=== PATIENT | female | born 1980 | race Caucasian/White ===

== ENCOUNTER 2018-03-17 10:24 | Emergency (ER) | payer OTHER ==
[~2018-03-17] VITALS: Ht 165.1 cm; Wt 90.7 kg
[~2018-03-17 10:24] MED LIST: AMITRIPTYLINE H25 M2 PO; BACTRIM DS TAB1 EACH PO; CYCLOBENZAPRINE5 MG PO; DOXYCYCLINE 10100 MG PO; FLEXERIL PO; GABAPENTIN 100100 MG PO; IBUPROFEN 800800 M1 PO; KEFLEX500 MG PO; NORCO 5-325 TA1 EAC1 PO; NORCO 5-325 TA1 EACH PO; TORADOL 10 MG T10 MG PO; TRIAMCINOLONE A80 G2 TOP; ULTRAM 50MG TAB50 MG PO; VITAMIN B-12500 MCG PO; VITAMIN D3400 UNIT PO; VITAMINC500 PO; ZOFRAN ODT4 MG PO
[2018-03-17] MEDS ORDERED: NEURONTIN600 MG (12:09)
[2018-03-17] MEDS ORDERED: IBUPROFEN 800800 M1 PO (12:53)
[2018-03-17] MEDS ORDERED: ROBAXIN500 MG PO (12:53)
[2018-03-17 13:54] VITALS: BP 138/48
--- NOTE | 2018-03-17 17:49 | EKG ---
[place] [address] ELECTROCARDIOGRAM REPORT Name: GERMANIA WOMACK Room: [facility]#: [id number] Admission: 03/17/18 Attend Phys: Discharge: 03/17/18 Date of : 80 Report #: [id number] THIS REPORT FOR: //name// [facility] ED Test Date: 2018-03-17 Test Time: 10:45:12 Pat Name: GERMANIA WOMACK Department: Room: Gender: F Web Systems Developer: TAMMIE SANTOS : 1980 Requested By: Uriel Ragsdale Order Number: [id number] MD: Anthony Oates Measurements Intervals [employer] Rate: 84 P: 54 CA: 176 QRS: 70 QRSD: 83 T: 28 QT: 344 QTc: 407 Interpretive Statements Sinus rhythm Low voltage, precordial leads Compared to ECG 08/09/2016 18:10:18 Low QRS voltage now present Electronically Signed On 03-17-2018 17:49:33 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 03/17/18 1749 1045 1045 Anthony Oates MD, FAC /EPI
== END 2018-03-17 13:15 | disposition home or self-care (01) ==
LOC: M.ERS 10:24
DX: S16.1XXA Strain of muscle, fascia and tendon at neck level, initial encounter (principal); S20.212A Contusion of left front wall of thorax, initial encounter; S20.211A Contusion of right front wall of thorax, initial encounter; V89.2XXA Person injured in unspecified motor-vehicle accident, traffic, initial encounter; Y93.89 Activity, other specified; Y92.89 Other specified places as the place of occurrence of the external cause; Y99.8 Other external cause status; I10 Essential (primary) hypertension

== ENCOUNTER 2018-11-16 09:46 | Emergency (ER) | payer OTHER ==
[~2018-11-16] VITALS: Ht 154.9 cm; Wt 97.5 kg
[~2018-11-16 09:46] MED LIST changes: +NEURONTIN600 MG; +ROBAXIN500 MG PO
[2018-11-16 10:27] LABS: URINE BILIRUBIN NEGATIVE (Negative); URINE BLOOD NEGATIVE (Negative); URINE CLARITY CLEAR; URINE COLOR YELLOW; URINE GLUCOSE-RANDOM NEGATIVE (Negative); URINE KETONES NEGATIVE (Negative); URINE LEUKOCYTES-REFLEX NEGATIVE (Negative); URINE NITRITE-REFLEX NEGATIVE (Negative); URINE PROTEIN NEGATIVE (Negative); URINE SPECIFIC GRAVITY >= 1.030 (1.005-1.030); URINE UROBILINOGEN 0.2 E.U./dl (0.2-1.0)
[2018-11-16 10:33] LABS: ABSOLUTE BASOPHILS 0.1 thou/uL (0.0-0.2); ABSOLUTE EOSINOPHILS 0.2 thou/uL (0.0-0.7); ABSOLUTE LYMPHOCYTES 2.5 thou/uL (0.8-5.3); ABSOLUTE MONOCYTES 0.5 thou/uL (0.0-1.2); ABSOLUTE NEUTROPHILS 6.1 thou/uL (1.6-8.1); BASOPHILS 0.6 %; EOSINOPHILS 1.6 %; HEMATOCRIT 42.2 % (37.0-47.0); HEMOGLOBIN 14.4 gm/dL (12.0-15.0); LYMPHOCYTES 26.8 %; MCH 32.1 pg (26.0-34.0); MCHC 34.2 g/dL (28.0-37.0); MCV 93.9 fL (80.0-100.0); MONOCYTES 5.7 %; NUCLEATED RBCS 0 /100WBC; PLATELET COUNT* 321 thou/uL (150-400); POLYS 65.3 %; RBC 4.49 mil/uL (4.20-5.00); RDW-CV 13.5 % (10.5-14.5); WBC 9.4 thou/uL (4.0-11.0)
[2018-11-16 10:54] LABS: ANION GAP 7 mmol/L (7-16); BUN 13 mg/dL (7-18); CALCIUM 8.4 mg/dL (8.5-10.1); CHLORIDE 106 mmol/L (98-107); CO2 27 mmol/L (21-32); CREATININE 0.8 mg/dL (0.6-1.3); GLUCOSE 105 mg/dL (70-99); POTASSIUM 3.5 mmol/L (3.5-5.1); SODIUM 140 mmol/L (136-145)
[2018-11-16 10:58] LABS: ALBUMIN 3.6 g/dL (3.4-5.0); ALKALINE PHOSPHATASE 62 U/L (46-116); LIPASE 89 U/L (73-393); SGOT 9 U/L (15-37); SGPT 18 U/L (30-65); TOTAL BILIRUBIN 0.3 mg/dL (<0.1-1.0); TOTAL PROTEIN 7.7 g/dL (6.4-8.2); TROPONIN-I LEVEL <0.06 ng/mL (<0.06)
[2018-11-16] MEDS ORDERED: BENTYL 20 MG TA20 M1 PO ×2 (11:47→11:59)
[2018-11-16] MEDS ORDERED: ZOFRAN ODT4 MG PO ×2 (11:47→11:59)
[2018-11-16 12:12] VITALS: BP 122/50
--- NOTE | 2018-11-16 14:51 | EKG ---
[place] [address] ELECTROCARDIOGRAM REPORT Name: GERMANIA WOMACK Room: [facility]#: [id number] Admission: 11/16/18 Attend Phys: Discharge: 11/16/18 Date of : [birth year] Report #: [id number] THIS REPORT FOR: //name// [facility] ED Test Date: 2018-11-16 Test Time: 10:28:23 Pat Name: GERMANIA WOMACK Department: Room: Gender: F [employer]: : 1980 Requested By: Dara Chou Order Number: [id number] MD: Haroon Serna Measurements Intervals [place] Rate: 84 P: -2 DE: 155 QRS: 66 QRSD: 83 T: 23 QT: 361 QTc: 427 Interpretive Statements Sinus rhythm Low voltage, precordial leads Compared to ECG 03/17/2018 10:45:12 No significant changes Electronically Signed On 11-16-2018 14:51:38 CDT by Haroon eSrna [email or web address] <ELECTRONICALLY SIGNED> By: Haroon Serna MD, [facility] 11/16/18 1451 1028 27 Haroon Serna MD, FACC /EPI
== END 2018-11-16 12:13 | disposition home or self-care (01) ==
LOC: M.ERS 09:46
PROVIDERS: Nurse Practitioner Family
DX: A08.4 Viral intestinal infection, unspecified (principal); R11.2 Nausea with vomiting, unspecified; I10 Essential (primary) hypertension; F17.210 Nicotine dependence, cigarettes, uncomplicated; Z88.0 Allergy status to penicillin; Z88.8 Allergy status to other drugs, medicaments and biological substances; Z98.890 Other specified postprocedural states; Z90.49 Acquired absence of other specified parts of digestive tract